=== PATIENT | male | born 1980 | race Caucasian/White ===

== ENCOUNTER 2017-03-28 07:27 | Emergency (ER) | payer SELFPAY ==
--- NOTE | 2017-03-28 09:01 | ER Document Report ---
ED Neck/Back Problem - General Chief Complaint: Back Pain Stated Complaint: SHOULDER PAIN Time Seen by Provider: 03/28/17 08:12 Mode of Arrival: Ambulatory Information source: Patient Notes: patient is a 36-year-old male who presents to the ER today for right neck/ upper back pain that he woke up with yesterday morning. Patient states that it feels tight in that area. He denies any injury that he knows of, numbness or tingling anywhere. TRAVEL OUTSIDE OF THE [place] IN LAST 30 DAYS: No - Related Data Allergies/Adverse Reactions: Penicillins Allergy (Verified 03/28/17 07:54) Past Medical History - General Information source: Patient - Social History Smoking Status: Unknown if Ever Smoked Family History: Reviewed & Not Pertinent, Arthritis, DM, Malignancy, Other Patient has suicidal ideation: No Patient has homicidal ideation: No Pulmonary Medical History: Reports: Hx Asthma Renal/ Medical History: Denies: Hx Peritoneal Dialysis GI Medical History: Comment Only: Hx Ulcer - sciatica Musculoskeltal Medical History: Reports Hx Arthritis, Reports Hx Musculoskeletal Deformity - Back pain with sciatica 5 years ago none since, Denies Hx Musculoskeletal Trauma - Immunizations Hx Diphtheria, Pertussis, Tetanus Vaccination: No Review of Systems - Review of Systems Constitutional: No symptoms reported EENT: No symptoms reported Cardiovascular: No symptoms reported Respiratory: No symptoms reported Gastrointestinal: No symptoms reported Genitourinary: No symptoms reported Male Genitourinary: No symptoms reported Musculoskeletal: See HPI Skin: No symptoms reported Hematologic/Lymphatic: No symptoms reported Neurological/Psychological: No symptoms reported Physical Exam - Vital signs Vitals: Temp Pulse Resp BP Pulse Ox 97.6 F 77 16 118/92 H 100 03/28/17 07:54 03/28/17 07:54 03/28/17 07:54 03/28/17 07:54 03/28/17 07:54 - Notes Notes: PHYSICAL EXAMINATION: GENERAL: Well-appearing and in no acute distress. HEAD: Atraumatic, normocephalic. EYES: Pupils equal round and reactive to light, extraocular movements intact, sclera anicteric, conjunctiva are normal. NECK: Normal range of motion, supple without lymphadenopathy LUNGS: CTAB and equal. No wheezes rales or rhonchi. HEART: Regular rate and rhythm without murmurs ABDOMEN: Soft, no tenderness. No guarding, no rebound BACK: Tender over right trapezius, no vertebral tenderness, normal ROM GI/: no CVA tenderness EXTREMITIES: Normal range of motion, no pitting edema. No cyanosis. NEUROLOGICAL: Cranial nerves grossly intact. Normal sensory/motor exams. PSYCH: Normal mood, normal affect. SKIN: Warm, Dry, normal turgor, no rashes or lesions noted Course - Vital Signs Vital signs: Temp Pulse Resp BP Pulse Ox 97.5 F 75 16 120/80 100 03/28/17 11:04 03/28/17 11:04 03/28/17 11:04 03/28/17 11:04 03/28/17 11:04 Discharge - Discharge Clinical Impression: Upper back pain on right side, Neck pain Condition: Stable Disposition: HOME, SELF-CARE Instructions: Muscle Strain ([facility]) Additional Instructions: Return immediately for any new or worsening symptoms. Follow up with primary care provider, call tomorrow to make followup appointment. Prescriptions: Cyclobenzaprine HCl [Flexeril 10 mg Tablet] 10 mg PO TIDP PRN #15 tab PRN Reason: Forms: Return to Work
--- NOTE | 2017-03-28 10:48 | RADIOLOGY REPORT (SQ) ---
EXAM DESCRIPTION: CERV SP 3 VIEW OR LESS COMPLETED DATE/TIME: 03/28/2017 9:43 am REASON FOR STUDY: right sided neck/back pain COMPARISON: None. NUMBER OF VIEWS: Three views. TECHNIQUE: AP, lateral and odontoid radiographic images acquired of the cervical spine. LIMITATIONS: None. FINDINGS: MINERALIZATION: Normal. ALIGNMENT: Anatomic. VERTEBRAE: Vertebral bodies of normal height. DISCS: No significant disc space narrowing. No large osteophytes. HARDWARE: None in the spine. SOFT TISSUES: No masses or calcifications. Lung apices clear. OTHER: No other significant finding. IMPRESSION: NO SIGNIFICANT RADIOGRAPHIC FINDING IN THE CERVICAL SPINE. TECHNICAL DOCUMENTATION: JOB ID: [id number] [employer]- All Rights Reserved
[2017-03-28 11:05] VITALS: BP 120/80
== END 2017-03-28 11:05 | disposition home or self-care (01) ==
LOC: ER 07:27
DX: M54.89 Other dorsalgia (principal); M54.2 Cervicalgia; J45.909 Unspecified asthma, uncomplicated; Z88.0 Allergy status to penicillin
CPT/HCPCS: 72040; 99283

== ENCOUNTER 2017-04-13 16:40 | Emergency (ER) | payer SELFPAY ==
--- NOTE | 2017-04-13 17:31 | ER Document Report ---
ED General - General Chief Complaint: Knee Pain Stated Complaint: KNEE PAIN Time Seen by Provider: 04/13/17 17:20 Mode of Arrival: Ambulatory Information source: Patient Notes: Patient is a 36 year old male who presents with right knee pain that started yesterday. He denies any fall or recent injury. Describes the pain as intermittent and throbbing and located to medial surface of knee. Pain worse with prolonged standing. Denies swelling, erythema, warmth, deformity. He has tried tylenol which did provide mild relief. 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 TRAVEL OUTSIDE OF THE [place] IN LAST 30 DAYS: No - Related Data Allergies/Adverse Reactions: Penicillins Allergy (Verified 04/13/17 16:46) Past Medical History - General Information source: Patient - Social History Smoking Status: Current Every Day Smoker Chew tobacco use (# tins/day): No Frequency of alcohol use: None Drug Abuse: None Family History: Reviewed & Not Pertinent, Arthritis, DM, Malignancy, Other Pulmonary Medical History: Reports: Hx Asthma Renal/ Medical History: Denies: Hx Peritoneal Dialysis GI Medical History: Comment Only: Hx Ulcer - sciatica Musculoskeltal Medical History: Reports Hx Arthritis, Reports Hx Musculoskeletal Deformity - Back pain with sciatica 5 years ago none since, Denies Hx Musculoskeletal Trauma Surgical Hx: Negative - Immunizations Hx Diphtheria, Pertussis, Tetanus Vaccination: No Review of Systems - Review of Systems Constitutional: See HPI EENT: No symptoms reported Cardiovascular: No symptoms reported Respiratory: No symptoms reported Gastrointestinal: No symptoms reported Genitourinary: No symptoms reported Male Genitourinary: No symptoms reported Musculoskeletal: See HPI Skin: No symptoms reported Hematologic/Lymphatic: No symptoms reported Neurological/Psychological: No symptoms reported Physical Exam - Notes Notes: PHYSICAL EXAM: CONSTITUTIONAL: Alert and oriented, well-appearing and in no acute distress. HENT: Normocephalic, atraumatic. Moist mucous membranes. EYES: Pupils equal round and reactive to light, EOM intact. Sclera anicteric, conjunctiva are normal. No entrapment. HEART: Regular rate and rhythm without murmurs. LUNGS: CTAB and equal. No wheezes, rales or rhonchi. BACK: nontender, no paraspinous spasm, 5+/5 strengths, DTRs 2+, SLR -. EXTREMITIES: Right knee - tender to palpation over medial surface/MCL. No erythema, warmth, edema, effusion, deformity. Normal range of motion, no pitting edema. No cyanosis. Cap Refill <3 seconds. NEURO: Cranial nerves grossly intact. Normal sensory/motor exams. PSYCH: Normal mood, normal affect. SKIN: Warm and dry. Normal turgor. No rashes or lesions noted. Course - Re-evaluation Re-evalutation: 04/13/17 18:16 Patient seen and examined. No obvious deformity. Distal pulses intact. Neurovascular intact. No evidence of septic arthritis or effusion. Reviewed imaging studies - negative for acute fracture or dislocation. Discussed results with patient. Will give MELVIN wrap, NSAIDs for pain and advised to f/u with ortho. At this time, will discharge with return precautions and follow-up recommendations. Verbal discharge instructions given at the bedside and opportunity for questions given. Medication warnings reviewed. Patient is in agreement with this plan and has verbalized understanding of return precautions and the need for primary care follow-up in the next 24-72 hours. - Diagnostic Test Radiology reviewed: Image reviewed, Reports reviewed Discharge - Discharge Clinical Impression: Right medial knee pain Medial collateral ligament sprain of knee Qualifiers: Encounter type: initial encounter Laterality: right Qualified Code(s): S83.411A - Sprain of medial collateral ligament of right knee, initial encounter Condition: Stable Disposition: HOME, SELF-CARE Additional Instructions: Sprained Knee Your sprained knee results from a stretching or tearing of the ligaments which support the joint. This often results from a bending stress -- such as a twisting fall while skiing or a "clip" while playing football. The ligaments will require time and protection to heal adequately. A knee sprain can be quite serious, and should be taken seriously. The usual treatment is splinting of the knee, ice packs, and elevation. You shouldn't walk on the leg if weightbearing is painful. Unless the sprain is obviously a minor one, follow-up exam is very important. The degree of ligament damage often cannot be fully assessed at first due to muscle spasm and pain. Your treatment plan may change based on the physician's findings during your follow-up examination. Call the doctor at once if there is severe swelling, increasing pain, numbness, or other alarming symptoms. Melvni Wrap A compression dressing (melvin wrap) has been placed. This helps hold the area still. It limits swelling and internal bleeding. The wrap should be comfortably snug -- not tight. You should feel a sense of pressure, but not severe pain under the wrap. Unless the physician tells you otherwise, you can adjust the wrap for comfort. If the wrap causes symptoms suggesting it's too tight -- uncomfortable pressure, swelling or discoloration beyond the wrap, numbness, or severe pain - - you must loosen the wrap. If these symptoms don't resolve promptly, return for re-evaluation. Anti-Inflammatory Medication You have received a prescription for an antiinflammatory agent. This is an excellent, safe drug for pain control. In addition, it has potent antiinflammatory effects which are beneficial, especially in the treatment of injuries, arthritis, or tendonitis. It's best to take this medicine with food. Persons with ulcer disease or allergy to aspirin should notify their physician of this before taking this drug. Take the medication exactly as prescribed. Don't take additional doses unless instructed to do so by your doctor. If you develop wheezing, shortness of breath, hives, faintness, stomach pain, vomiting, or dark black stools, return for re-evaluation at once. FOLLOW-UP CARE: If you have been referred to a physician for follow-up care, call the physician s office for an appointment as you were instructed or within the next two days. If you experience worsening or a significant change in your symptoms, notify the physician immediately or return to the Emergency Department at any time for re-evaluation. Prescriptions: Ketorolac Tromethamine [Toradol 10 mg Tablet] 10 mg PO Q6HP PRN #20 tablet PRN Reason: Referrals: MIGUEL CAVAZOS MD [ACTIVE STAFF] - Follow up in 1 week
--- NOTE | 2017-04-13 17:59 | RADIOLOGY REPORT (SQ) ---
EXAM DESCRIPTION: KNEE RIGHT 4 VIEWS COMPLETED DATE/TIME: 04/13/2017 5:39 pm REASON FOR STUDY: pain COMPARISON: None. NUMBER OF VIEWS: Four views. TECHNIQUE: AP, lateral, and both oblique radiographic images acquired of the right knee. LIMITATIONS: None. FINDINGS: MINERALIZATION: Normal. BONES: No acute fracture or dislocation. No worrisome bone lesions. JOINT: No effusion. SOFT TISSUES: No soft tissue swelling. No radio-opaque foreign body. OTHER: No other significant finding. IMPRESSION: NEGATIVE STUDY OF THE RIGHT KNEE. NO RADIOGRAPHIC EVIDENCE OF ACUTE INJURY. TECHNICAL DOCUMENTATION: JOB ID: [id number] [employer]- All Rights Reserved
== END 2017-04-13 18:27 | disposition home or self-care (01) ==
LOC: ER 16:40
DX: S83.411A Sprain of medial collateral ligament of right knee, initial encounter (principal); F17.200 Nicotine dependence, unspecified, uncomplicated; X58.XXXA Exposure to other specified factors, initial encounter; Z88.0 Allergy status to penicillin
CPT/HCPCS: 99283

== ENCOUNTER 2017-11-26 12:54 | Emergency (ER) | payer SELFPAY ==
[2017-11-26 12:59] VITALS: BP 136/86
[2017-11-26] MEDS ORDERED: DEXAMETHASONE SOD PHOS INJ 10 MG/1 ML VIAL IM ONE (13:06)
[2017-11-26] MEDS ORDERED: KETOROLAC TROMETHAMINE INJ/PF 30 MG/1 ML SDV IM ONE (13:06)
--- NOTE | 2017-11-26 13:12 | ER Document Report ---
HPI - HPI Pain Level: 5 Notes: Patient is a 37-year-old male with a history of previous back pain intermittently presents to the ED complaining of low back pain status post injury yesterday. Patient states that he was lifting up a heavy cooler with ice when he felt a pop in his lower back and had pain. Patient states that the pain is worse with truncal movements and is improved with being still. Patient states that the pain stays in his lower back and does not radiate into his lower extremities. Patient states that it feels like a muscle pulling in his back. He has not had any surgeries or procedures to his lower back. He is eating and drinking without difficulties. He is urinating normally and having normal bowel movements. He denies any IV drug use but does admit to smoking. No other concerns or complaints at this time. Denies any headache, fever, neck pain, URI, sore throat, chest pain, palpitations, syncope, cough, shortness of breath, wheeze, dyspnea, abdominal pain, nausea/vomiting/diarrhea, urinary retention, dysuria, hematuria, loss of control of bowel or bladder, numbness/ tingling, saddle anesthesia, muscle paralysis/weakness, or rash. - ROS Systems Reviewed and Negative: Yes All other systems reviewed and negative - CONSTITUTIONAL Constitutional: DENIES: Fever, Chills - REPRODUCTIVE Reproductive: DENIES: : Past Medical History - Social History Smoking Status: Current Every Day Smoker Chew tobacco use (# tins/day): No Frequency of alcohol use: None Drug Abuse: None Family History: Reviewed & Not Pertinent, Arthritis, DM, Malignancy, Other Patient has suicidal ideation: No Patient has homicidal ideation: No Pulmonary Medical History: Reports: Hx Asthma Renal/ Medical History: Denies: Hx Peritoneal Dialysis GI Medical History: Comment Only: Hx Ulcer - sciatica Musculoskeltal Medical History: Reports Hx Arthritis, Reports Hx Musculoskeletal Deformity - Back pain with sciatica 5 years ago none since, Denies Hx Musculoskeletal Trauma - Immunizations Hx Diphtheria, Pertussis, Tetanus Vaccination: No Vertical Provider Document - CONSTITUTIONAL Agree With Documented VS: Yes Notes: PHYSICAL EXAMINATION: GENERAL: Well-appearing, well-nourished and in no acute distress. LUNGS: Breath sounds clear to auscultation bilaterally and equal. No wheezes rales or rhonchi. HEART: Regular rate and rhythm without murmurs, rubs, gallops. ABDOMEN: Soft, nontender, nondistended abdomen. No guarding, no rebound. No masses appreciated. Normal bowel sounds present. No CVA tenderness bilaterally. No pulsatile mass Musculoskeletal: LE's b/l: FROM to passive/active. Strength 5+/5. No deficits noted. No bony tenderness of extremities. Back: FROM to passive/active. Strength 5+/5. No vertebral point tenderness, stepoffs, or deformities. No other bony tenderness, erythema, swelling, or ecchymosis. SLR negative b/l. + mild tenderness to the L-paraspinal mm b/l ( increased pain when he moves his trunk during exam than me palpating). Mild spasming. No SI jt tenderness. No foot drop Extremities: No cyanosis, clubbing, or edema b/l. Peripheral pulses 2+. Capillary refill less than 2 seconds. NEUROLOGICAL: Normal speech, normal gait. Normal sensory, motor exams. Reflexes 2+ b/l. PSYCH: Normal mood, normal affect. SKIN: Warm, Dry, normal turgor, no rashes or lesions noted. - INFECTION CONTROL TRAVEL OUTSIDE OF THE [place] IN LAST 30 DAYS: No Course - Re-evaluation Re-evalutation: 11/26/17 13:09 Patient is an afebrile, well-hydrated, 37-year-old male who presents to the ED with low back pain, suspect a low back strain based on H&P today. Vitals are acceptable. PE is otherwise unremarkable. Patient has a mechanism of injury. He has no red flag symptoms at this time. No labs or imaging warranted at this time based on H&P. See history and physical exam. Patient is able to ambulate around the room without any difficulties. Toradol and Decadron given IM today. Low suspicion for any meningitis, fracture, expanding/ruptured AAA, cauda equina syndrome, epidural mass lesion/abscess, herniated disc causing severe spinal stenosis, or other systemic infection at this time. Patient is aware that his condition can change from initial presentation and that he needs monitor symptoms closely for any acute changes. I will send him home with a prescription for naproxen and baclofen. A work note will be provided for tomorrow. Recheck with your PCM in 3-5 days. Consider consult orthopedic/ physical therapy. Return to the ED with any worsening/concerning symptoms otherwise as reviewed discharge. Patient is in agreement. - Vital Signs Vital signs: Temp Pulse Resp BP Pulse Ox 98.3 F 92 16 136/86 H 99 11/26/17 12:58 11/26/17 12:58 11/26/17 12:58 11/26/17 12:58 11/26/17 12:58 Discharge - Discharge Clinical Impression: Low back pain Qualifiers: Chronicity: acute Back pain laterality: bilateral Sciatica presence: without sciatica Qualified Code(s): M54.5 - Low back pain Condition: Stable Disposition: HOME, SELF-CARE Instructions: Muscle Strain ([facility]), Low Back Pain ([facility]), Stretching Exercises for the Back ([facility]), Muscle Relaxers ([facility]) Additional Instructions: Rest, Ice Tylenol/ibuprofen as needed Light stretches daily Strength exercises as able Moist heat and massage may help F/u with your PCP in 3-5 days for a recheck Consider consult(s) with Orthopedics/physical therapy for ongoing/worsening symptoms Return to the ED with any worsening symptoms and/or development of fever, headache, changes in behavior/mentation/vision/speech, chest pain, palpitations , syncope, shortness of breath, trouble breathing, abdominal pain, n/v/d, blood in stool/urine, loss of control of bowel/bladder, urinary retention, muscle weakness/paralysis, saddle anesthesia, numbness/tingling, or other worsening symptoms that are concerning to you. Prescriptions: Baclofen [Baclofen 10 mg Tablet] 5 - 10 mg PO BID PRN #10 tablet PRN Reason: Naproxen 500 mg PO BID PRN #30 tablet PRN Reason: Forms: Elevated Blood Pressure, Smoking Cessation Education, Return to Work Referrals: [facility] [Provider Group] - Follow up as needed
== END 2017-11-26 13:30 | disposition home or self-care (01) ==
LOC: ER 12:54
DX: M54.5 Low back pain (principal); X50.0XXA Overexertion from strenuous movement or load, initial encounter; F17.200 Nicotine dependence, unspecified, uncomplicated; J45.909 Unspecified asthma, uncomplicated
CPT/HCPCS: 99283; 96372; J1885; J1100

== ENCOUNTER 2019-01-23 16:18 | Emergency (ER) | payer SELFPAY ==
[2019-01-23 16:49] VITALS: BP 134/76
[2019-01-23] MEDS ORDERED: IBUPROFEN 800 MG TABLET PO ONE (16:54)
--- NOTE | 2019-01-23 16:57 | ER Document Report ---
ED Medical Screen (RME) - General Chief Complaint: Leg Swelling Stated Complaint: KNEE PAIN Time Seen by Provider: 01/23/19 16:53 Mode of Arrival: Ambulatory Information source: Patient Notes: Patient with right knee pain that started yesterday. Patient with right leg redness swelling and heat to the lateral aspect of right knee and right calf. Patient denies any fever or injury. I have greeted and performed a rapid initial assessment of this patient. A comprehensive ED assessment and evaluation of the patient, analysis of test results and completion of the medical decision making process will be conducted by additional ED providers. TRAVEL OUTSIDE OF THE [place] IN LAST 30 DAYS: No - Related Data Allergies/Adverse Reactions: Penicillins Allergy (Verified 01/23/19 16:42) Past Medical History Pulmonary Medical History: Reports: Hx Asthma Renal/ Medical History: Denies: Hx Peritoneal Dialysis GI Medical History: Comment Only: Hx Ulcer - sciatica Musculoskeltal Medical History: Reports Hx Arthritis, Reports Hx Musculoskeletal Deformity - Back pain with sciatica 5 years ago none since, Denies Hx Musculoskeletal Trauma - Immunizations Hx Diphtheria, Pertussis, Tetanus Vaccination: No Physical Exam - Vital signs Vitals: Temp Pulse Resp BP Pulse Ox 99.2 F 86 16 134/76 H 96 01/23/19 16:48 01/23/19 16:48 01/23/19 16:48 01/23/19 16:48 01/23/19 16:48 - Extremities General lower extremity: Tender - Right knee joint tender erythematous and warm to medial aspect, erythema, calor and swelling extend to the right lower leg as well Course - Vital Signs Vital signs: Temp Pulse Resp BP Pulse Ox 99.2 F 86 16 134/76 H 96 01/23/19 16:48 01/23/19 16:48 01/23/19 16:48 01/23/19 16:48 01/23/19 16:48
--- NOTE | 2019-01-23 17:16 | RADIOLOGY REPORT (SQ) ---
EXAM DESCRIPTION: KNEE RIGHT 4 VIEWS COMPLETED DATE/TIME: 01/23/2019 5:05 pm REASON FOR STUDY: r knee pain, redness swelling to right lower leg COMPARISON: 04/13/2017 NUMBER OF VIEWS: Four views. TECHNIQUE: AP, lateral, and both oblique radiographic images acquired of the right knee. LIMITATIONS: None. FINDINGS: MINERALIZATION: Normal. BONES: No acute fracture or dislocation. No worrisome bone lesions. JOINT: No effusion. SOFT TISSUES: Focal soft tissue prominence is seen anterior to the patellar tendon. OTHER: No other significant finding. IMPRESSION: Anterior soft tissue swelling without underlying osseous injury. TECHNICAL DOCUMENTATION: JOB ID: [id number] [employer]- All Rights Reserved Reading location - IP/workstation name: [email or web address]
[2019-01-23 17:54] LABS: ABSOLUTE LYMPHOCYTES (AUTO) 1.7 10^3/uL (0.5-4.7); ABSOLUTE NEUT (AUTO) 6.9 10^3/uL (1.7-8.2); BASOPHILS % (AUTO) 0.4 % (0-2); HEMATOCRIT 38.9 % (37.9-51.0); HEMOGLOBIN 13.6 g/dL (13.5-17.0); LYMPHOCYTES % (AUTO) 17.6 % (13-45); MEAN CORPUSCULAR HEMOGLOBIN 31.6 pg (27.0-33.4); MEAN CORPUSCULAR VOLUME 91 fl (80-97); MONOCYTES % (AUTO) 10.6 % (3-13); PLATELET COUNT 189 10^3/uL (150-450); SEGMENTED NEUTROPHILS % (AUTO) 71.4 % (42-78); TOTAL CELLS COUNTED % (AUTO) 100 %; WHITE BLOOD COUNT 9.7 10^3/uL (4.0-10.5)
[2019-01-23 18:15] LABS: ALANINE AMINOTRANSFERASE 31 U/L (21-72); ALKALINE PHOSPHATASE 53 U/L (38-126); ANION GAP 9 (5-19); ASPARTATE AMINO TRANSFERASE 22 U/L (17-59); BILIRUBIN,DIRECT 0.3 mg/dL (0.0-0.4); BILIRUBIN,TOTAL 0.8 mg/dL (0.2-1.3); BLOOD UREA NITROGEN 15 mg/dL (7-20); C-REACTIVE PROTEIN 49.8 mg/L (<10.0); CALCIUM 8.8 mg/dL (8.4-10.2); CARBON DIOXIDE 30 mmol/L (22-30); CHLORIDE 100 mmol/L (98-107); POTASSIUM 3.9 mmol/L (3.6-5.0); SODIUM 138.8 mmol/L (137-145); TOTAL PROTEIN 6.6 g/dL (6.3-8.2)
[2019-01-23 18:18] LABS: GLUCOSE 62 mg/dL (75-110)
[2019-01-23 18:31] LABS: ERYTHROCYTE SEDIMENTATION RATE 22 mm/hr (0-15)
[2019-01-23] MEDS ORDERED: CEFTRIAXONE 1 GM/D5W RTU 1 GM/50 ML RTUPB IV ONE (22:21)
[2019-01-23] MEDS ORDERED: SULFAMETHOXAZOLE/TRIMETHOPRIM 800-160 MG TABLET PO ONE (22:21)
--- NOTE | 2019-01-23 22:23 | ER Document Report ---
ED Extremity Problem, Lower - General Chief Complaint: Leg Swelling Stated Complaint: KNEE PAIN Time Seen by Provider: 01/23/19 16:53 Mode of Arrival: Ambulatory Notes: Patient is a 38-year-old male that comes to the emergency department for chief complaint of right leg pain starting in the knee and going down towards the ankle with swelling, heat, and increased pain when he walks. Pain is mostly in the lateral aspect of the leg. 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 He denies fever or chills, nausea or vomiting, other injury. He denies any diagnosed medical problems. He does not take any daily medications. He reports his tetanus is up-to-date. TRAVEL OUTSIDE OF THE [place] IN LAST 30 DAYS: No - Related Data Allergies/Adverse Reactions: Penicillins Allergy (Verified 01/23/19 16:42) Past Medical History - General Information source: Patient - Social History Smoking Status: Current Every Day Smoker Frequency of alcohol use: None Drug Abuse: None Lives with: Family Family History: Reviewed & Not Pertinent, Arthritis, DM, Malignancy, Other Patient has suicidal ideation: No Patient has homicidal ideation: No Pulmonary Medical History: Reports: Hx Asthma Renal/ Medical History: Denies: Hx Peritoneal Dialysis GI Medical History: Comment Only: Hx Ulcer - sciatica Musculoskeletal Medical History: Reports Hx Arthritis, Reports Hx Musculoskeletal Deformity - Back pain with sciatica 5 years ago none since, Denies Hx Musculoskeletal Trauma - Immunizations Immunizations up to date: Yes Hx Diphtheria, Pertussis, Tetanus Vaccination: Yes Review of Systems - Review of Systems Constitutional: No symptoms reported EENT: No symptoms reported Cardiovascular: No symptoms reported Respiratory: No symptoms reported Gastrointestinal: No symptoms reported Genitourinary: No symptoms reported Male Genitourinary: No symptoms reported Musculoskeletal: See HPI Skin: See HPI Hematologic/Lymphatic: No symptoms reported Neurological/Psychological: No symptoms reported Physical Exam - Vital signs Vitals: Temp Pulse Resp BP Pulse Ox 99.2 F 86 16 134/76 H 96 01/23/19 16:48 01/23/19 16:48 01/23/19 16:48 01/23/19 16:48 01/23/19 16:48 - Notes Notes: GENERAL: Alert, interacts well. No acute distress. HEAD: Normocephalic, atraumatic. EYES: Pupils equal, round, and reactive to light. Extraocular movements intact. ENT: Oral mucosa moist, tongue midline. Oropharynx unremarkable. Airway patent. LUNGS: Clear to auscultation bilaterally, no wheezes, rales, or rhonchi. No respiratory distress. HEART: Regular rate and rhythm. No murmur ABDOMEN: Soft, non-tender. Non-distended. Bowel sounds present in all 4 quadrants. GENITOURINARY: Deferred EXTREMITIES: Right lower extremity with erythema starting over the lateral aspect of the lower extremity just below the knee and extending down towards the distal leg but not including the ankle. Range of motion of the knee is intact, the examination itself is unremarkable, ankle exam is normal, normal distal neurovascular exam. No soft tissue swelling or pain out of proportion. BACK: no cervical, thoracic, lumbar midline tenderness. No saddle anesthesia, normal distal neurovascular exam. Moves all extremities in full range of motion. NEUROLOGICAL: Alert and oriented x3. Normal speech. Cranial nerves II through XII grossly intact. PSYCH: Normal affect, normal mood. SKIN: Warm, dry, normal turgor. No rashes or lesions noted. Course - Re-evaluation Re-evalutation: There is erythema over the right lower extremity with nearby healing scrapes/superficial cuts on consistent with cellulitis of the lower extremity. Knee exam and ankle exam unremarkable, range of motion is intact and I do not suspect joint as a result. Patient is afebrile, does not have diabetes, denies history of IV drug abuse. No leukocytosis. Unremarkable chemistry. ESR and CRP are mildly elevated. But clinical picture still most consistent with uncomplicated cellulitis at this time. Given Rocephin, Bactrim. Patient will be provided with work-release, placed on antibiotics, discussed care, discussed strict return precautions. Patient states understanding and agreement. Stable at time of discharge. - Vital Signs Vital signs: Temp Pulse Resp BP Pulse Ox 99.2 F 86 16 134/76 H 96 01/23/19 16:48 01/23/19 16:48 01/23/19 16:48 01/23/19 16:48 01/23/19 16:48 - Laboratory Result Diagrams: 01/23/19 17:27 01/23/19 16:53 Laboratory results interpreted by me: 06/26/19 06/26/19 16:53 17:27 RBC 4.30 L ESR 22 H Glucose 62 L C-Reactive Protein 49.8 H Discharge - Discharge Clinical Impression: Lower extremity cellulitis Qualifiers: Laterality: right Qualified Code(s): L03.115 - Cellulitis of right lower limb Condition: Stable Disposition: HOME, SELF-CARE Additional Instructions: Your evaluation is consistent with cellulitis, infection in the skin of the leg. Keep your leg elevated, rest, take the antibiotics as prescribed. Symptoms should resolve. Follow-up with primary care. Return immediately if you worsen including spreading redness, increased swelling, fever/chills, nausea/vomiting, or any other concerning or worsening symptoms. Prescriptions: Cephalexin Monohydrate [Keflex 500 mg Capsule] 500 mg PO QID #28 capsule Sulfamethoxazole/Trimethoprim [Bactrim Ds Tablet] 1 each PO BID #14 tablet Forms: Return to Work
== END 2019-01-23 23:35 | disposition home or self-care (01) ==
LOC: ER 16:18
DX: L03.115 Cellulitis of right lower limb (principal); M79.89 Other specified soft tissue disorders; F17.200 Nicotine dependence, unspecified, uncomplicated; Z88.0 Allergy status to penicillin
CPT/HCPCS: 99283; 96365; 36415; 87040; 85025; 85652; 86140; 80053; 73564; J0696

== ENCOUNTER 2019-05-28 22:29 | Emergency (ER) | payer SELFPAY ==
--- NOTE | 2019-05-28 22:51 | ER Document Report ---
ED Medical Screen (RME) - General Chief Complaint: Dog Bite Stated Complaint: DOG BITE,RIGHT MIDDLE FINGER Time Seen by Provider: 05/28/19 22:47 Mode of Arrival: Ambulatory Information source: Patient Notes: 38-year-old male presents emergency department with multiple dog bites to his right middle finger. Reports his dogs start fighting he broke it up. Reports his dog's vaccines are up-to-date.. He reports his tetanus is up-to-date. No active bleeding. 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 Patient is right-hand dominant. I have greeted and performed a rapid initial assessment of this patient. A comprehensive ED assessment and evaluation of the patient, analysis of test results and completion of the medical decision making process will be conducted by additional ED providers. Dictation of this chart was performed using voice recognition software; therefore, there may be some unintended grammatical errors. TRAVEL OUTSIDE OF THE [place] IN LAST 30 DAYS: No - Related Data Allergies/Adverse Reactions: Penicillins Allergy (Verified 01/23/19 16:42) Past Medical History Pulmonary Medical History: Reports: Hx Asthma Renal/ Medical History: Denies: Hx Peritoneal Dialysis GI Medical History: Comment Only: Hx Ulcer - sciatica Musculoskeltal Medical History: Reports Hx Arthritis, Reports Hx Musculoskeletal Deformity - Back pain with sciatica 5 years ago none since, Denies Hx Musculoskeletal Trauma - Immunizations Immunizations up to date: Yes Hx Diphtheria, Pertussis, Tetanus Vaccination: Yes Physical Exam - Vital signs Vitals: Temp Pulse Resp BP Pulse Ox 98.2 F 100 18 141/78 H 95 05/28/19 22:32 05/28/19 22:32 05/28/19 22:32 05/28/19 22:32 05/28/19 22:32 Course - Vital Signs Vital signs: Temp Pulse Resp BP Pulse Ox 98.2 F 100 18 141/78 H 95 05/28/19 22:32 05/28/19 22:32 05/28/19 22:32 05/28/19 22:32 05/28/19 22:32
--- NOTE | 2019-05-28 23:29 | RADIOLOGY REPORT (SQ) ---
EXAM DESCRIPTION: XR FINGERS COMPLETED DATE/TME: 05/28/2019 22:49 CLINICAL HISTORY: 38 years Male dogbite COMPARISON: None. TECHNIQUE: Right finger, three views FINDINGS: No acute fractures or dislocations are identified. No osseous destructive lesions. Soft tissue defect over the third digit consistent with dog bite. No radiopaque foreign object noted. IMPRESSION: No acute fracture is identified. Soft tissue defect over the third digit at the level of the middle phalanx and distal phalanx
[2019-05-29] MEDS ORDERED: METRONIDAZOLE 500 MG TABLET PO ONE (00:55)
[2019-05-29] MEDS ORDERED: DOXYCYCLINE HYCLATE 100 MG TABLET PO ONE (00:55)
[2019-05-29] MEDS ORDERED: PROMETHAZINE HCL 25 MG TABLET PO ONE (01:09)
[2019-05-29] MEDS ORDERED: OXYCODONE-ACETAMINOPHEN 5-325 MG TABLET PO ONE (01:09)
--- NOTE | 2019-05-29 01:12 | ER Document Report ---
HPI - HPI Time Seen by Provider: 05/28/19 22:47 Pain Level: 3 Context: Patient is a 38-year-old male that comes to the emergency department for chief complaint of laceration to the right middle finger over the palmar aspect. He states that this was from a dog bite, he was trying to break up his dogs from fighting, this was a pit bull. He owns the dog, the dog is vaccinated up-to-date, patient states his tetanus is up-to-date within 5 years. He denies any other injuries. - REPRODUCTIVE Reproductive: DENIES: : Past Medical History - General Information source: Patient - Social History Smoking Status: Current Every Day Smoker Frequency of alcohol use: None Drug Abuse: None Lives with: Family Family History: Reviewed & Not Pertinent, Arthritis, DM, Malignancy, Other Patient has suicidal ideation: No Patient has homicidal ideation: No Pulmonary Medical History: Reports: Hx Asthma Renal/ Medical History: Denies: Hx Peritoneal Dialysis GI Medical History: Comment Only: Hx Ulcer - sciatica Musculoskeletal Medical History: Reports Hx Arthritis, Reports Hx Musculoskeletal Deformity - Back pain with sciatica 5 years ago none since, Denies Hx Musculoskeletal Trauma - Immunizations Immunizations up to date: Yes Hx Diphtheria, Pertussis, Tetanus Vaccination: Yes Vertical Provider Document - CONSTITUTIONAL General Appearance: WD/WN, No Apparent Distress - INFECTION CONTROL TRAVEL OUTSIDE OF THE [place] IN LAST 30 DAYS: No - HEENT HEENT: Atraumatic, Normal ENT Exam, Normocephalic - NECK Neck: Normal Inspection - RESPIRATORY Respiratory: Breath Sounds Normal, No Respiratory Distress - CARDIOVASCULAR Cardiovascular: Regular Rate, Regular Rhythm - GI/ABDOMEN Gastrointestinal: Abdomen Soft, Abdomen Non-Tender - BACK Back: Normal Inspection - MUSCULOSKELETAL/EXTREMETIES Musculoskeletal/Extremeties: MAEW, FROM, Tender - There is a thin superficial strip of avulsion in a straight line over the palmar aspect of the right middle finger extending almost up to the DIP, this is very superficial but does have attack of skin hanging on the end of it. There is also a tiny superficial flap inferior to this. There is mild bruising to the finger as well. Range of motion including flexion and extension intact against resistance. Normal capillary refill and sensation. Normal hand exam otherwise. - NEURO Level of Consciousness: Awake, Alert, Appropriate Motor/Sensory: No Motor Deficit, No Sensory Deficit - DERM Integumentary: Warm, Dry, No Rash Course - Re-evaluation Re-evalutation: X-ray negative for fracture or foreign body. I did have to trim off a tiny amount of avulsed skin before this was thoroughly cleaned and dressed. Placed on doxycycline and Flagyl because of his penicillin allergy causing hives. This is per up-to-date recommendations. Discussed expectations, follow-up, and return precautions. Patient states appreciation and agreement. Stable at time of discharge. - Vital Signs Vital signs: Temp Pulse Resp BP Pulse Ox 98.2 F 100 18 141/78 H 95 05/28/19 22:32 05/28/19 22:32 05/28/19 22:32 05/28/19 22:32 05/28/19 22:32 Discharge - Discharge Clinical Impression: Dog bite Qualifiers: Encounter type: initial encounter Qualified Code(s): W54.0XXA - Bitten by dog, initial encounter Finger laceration Qualifiers: Encounter type: initial encounter Finger: middle finger Damage to nail status: without damage Foreign body presence: without foreign body Laterality: right Qualified Code(s): S61.212A - Laceration without foreign body of right middle finger without damage to nail, initial encounter Condition: Stable Disposition: HOME, SELF-CARE Additional Instructions: The x-ray does not show fracture or concerning finding. The area of skin is avulsed/torn away, this area simply needs to heal with time. You can keep the Xeroform (yellow part) dressing over the area for the next 2 days but remember to clean this at least once daily with soap and water, afterwards simply apply topical antibiotic dressings. Take the antibiotics as prescribed to completion. Follow-up with primary care. Return for any signs of infection including developing pain, increased swelling, developing redness or discolored discharge, fever, or any other concerning symptoms. Prescriptions: Doxycycline Hyclate 100 mg PO BID #14 capsule Metronidazole [Flagyl 500 mg Tablet] 500 mg PO BID #14 tablet Forms: Return to Work
[2019-05-29 02:25] VITALS: BP 131/85
== END 2019-05-29 01:45 | disposition home or self-care (01) ==
LOC: ER 22:29
DX: S61.212A Laceration without foreign body of right middle finger without damage to nail, initial encounter (principal); W54.0XXA Bitten by dog, initial encounter; F17.200 Nicotine dependence, unspecified, uncomplicated
CPT/HCPCS: 99283